=== PATIENT | female | born 1955 | race Caucasian/White ===

== ENCOUNTER 2025-01-10 18:45 | Emergency (ER) | payer BC, MEDICARE | END 2025-01-10 20:43 | disposition home or self-care (01) | LOC: NAV ERS 18:45 | DX: M25.531 Pain in right wrist (principal); I10 Essential (primary) hypertension; E11.9 Type 2 diabetes mellitus without complications; E78.5 Hyperlipidemia, unspecified; Z79.899 Other long term (current) drug therapy; Z87.891 Personal history of nicotine dependence; W01.10XA Fall on same level from slipping, tripping and stumbling with subsequent striking against unspecified object, initial encounter | CPT/HCPCS: 29125; 99283 ==